=== PATIENT | female | born 1990 | race Two or more races ===

== ENCOUNTER 2016-06-29 17:50 | Emergency (ER) | payer MEDICAID ==
[~2016-06-29] VITALS: Ht 157.5 cm; Wt 63.5 kg
[2016-06-30 05:33] VITALS: BP 103/62
== END 2016-06-30 08:32 | disposition home or self-care (01) ==
LOC: ER 17:57
DX: S86.911A Strain of unspecified muscle(s) and tendon(s) at lower leg level, right leg, initial encounter (principal); X58.XXXA Exposure to other specified factors, initial encounter; Y93.89 Activity, other specified; Y99.8 Other external cause status; Y92.89 Other specified places as the place of occurrence of the external cause
CPT/HCPCS: 73700

== ENCOUNTER 2021-04-28 08:55 | Emergency (ER) | payer MEDICAID ==
[~2021-04-28] VITALS: Ht 154.9 cm; Wt 66.2 kg
[2021-04-28 09:31] VITALS: BP 117/43
[2021-04-28 09:39] LABS: Basophils # (auto) 0 10 ^3/uL (0-0.2); Basophils % (auto) 0.3 % (0.0-2.0); Eosinophils # (auto) 0.1 10 ^3/uL (0-0.8); Eosinophils % (auto) 1.4 % (0.0-7.0); Hematocrit 38.2 % (36.0-46.0); Hemoglobin 12.7 g/dL (12.2-16.2); Lymphocytes # (auto) 1.5 10 ^3/uL (0.4-5.4); Mean Corpuscular Hgb Conc. 33.2 g/dL (32.0-36.0); Mean Corpuscular Volume 90.2 fL (80.0-100.0); Monocytes # (auto) 0.7 10 ^3/uL (0-1.3); Monocytes % (auto) 7.8 % (0.0-12.0); Neutrophils # (auto) 6.1 10 ^3/uL (1.6-8.6); Neutrophils % (auto) 72.5 % (37.0-80.0); Red Blood Cells 4.24 10^6/uL (4.0-5.20); Red Cell Distribution Width 13.7 % (11.8-14.3); White Blood Cell 8.4 10^3/uL (4.4-10.8)
[2021-04-28] MEDS ORDERED: NITR-87 PO (12:54)
== END 2021-04-28 13:00 | disposition home or self-care (01) ==
LOC: ER 08:55
DX: O20.0 Threatened abortion (principal); O20.8 Other hemorrhage in early pregnancy; O23.11 Infections of bladder in pregnancy, first trimester; N30.00 Acute cystitis without hematuria; Z3A.00 Weeks of gestation of pregnancy not specified
CPT/HCPCS: 36415; 76801; 76817; 81002; 81025; 84702; 85025

== ENCOUNTER 2021-04-28 23:48 | Emergency (ER) | payer MEDICAID ==
[~2021-04-28] VITALS: Ht 154.9 cm; Wt 66.2 kg
[~2021-04-28 23:48] MED LIST: NITR-87 PO
[2021-04-29 09:00] VITALS: BP 114/65
== END 2021-04-29 08:39 | disposition home or self-care (01) ==
LOC: ER 23:48
DX: O20.8 Other hemorrhage in early pregnancy (principal); Z3A.12 12 weeks gestation of pregnancy
CPT/HCPCS: 36415; 84702